=== PATIENT | male | born 1985 | race African-American/Black ===

== ENCOUNTER 2016-05-29 07:38 | Emergency (ER) | payer OTHER, MEDICAID ==
[~2016-05-29] VITALS: Ht 177.8 cm; Wt 65.8 kg
[~2016-05-29 07:38] MED LIST: AMPICILLIN IV; DILAUDID1 MG/M1 PO; NEURONTIN300 MG PO; NORCO 10/325 MG1 TAB PO; SENNA CON/DOCUS1 TAB PO; SENNA-S 50 MG-81 TAB PO; SULBACTAM IV; THERAGRAN1 TA2 PO; TYLENOL325 M2 PO; VANCOMYCIN HYDRO1 GM IV
[2016-05-29 07:48] VITALS: BP 114/82
--- NOTE | 2016-05-29 07:52 | NUR ---
PT TO BED 4 AT THIS TIME.
--- NOTE | 2016-05-29 07:53 | NUR ---
31M BIB SELF C/O BODY ACHES X TODAY & RT LEG PAIN X 3 DAYS; SWELLING NOTED TO RT KNEE; PT DENIES TRAUMA OR INJURY TO RT LEG AT THIS TIME; PT C/O PRESSURE/STABBING PAIN TO RT LEG, NON-RADIATING, 7/10 PAIN; A&OX4, BL LUNG SOUNDS CLEAR, RR EVEN/UNLABORED; PT STATES HAS DRY COUGH W/ GREEN MUCOUS X 2 DAYS; DENIES N/V/D AT THIS TIME; PT PRESENTS TO ED W/ CARRILLO; PT W/C BOUND, STATES PARALYZED FROM THE WAIST DOWN D/T FALL IN 2006; SKIN IS WARM/DRY/INTACT AT THIS TIME; PT PLACED IN GOWN, ASSISTED TO BED W/ HOB ELEVATED AND IN LOWEST POSITION; ER MD MADE AWARE OF STATUS. WILL CONTINUE TO MONITOR.
--- NOTE | 2016-05-29 08:05 | NUR ---
WARM BLANKET PROVIDED TO PT FOR COMFORT.
[2016-05-29] MEDS ORDERED: ACETAMINOPHEN 325 MG TAB PO ONE (08:10)
[2016-05-29 09:05] VITALS: BP 114/82
--- NOTE | 2016-05-29 09:05 | NUR ---
APatient does not wish to proceed with medical care recommended by . Patient given information related to possible complications, up to and including , which could occur as a result of leaving hospital at this time. Patient verbalizes understanding of risks involved leaving against medical advice. Patient has signed AMA form.
== END 2016-05-29 09:05 | disposition left against medical advice (07) ==
LOC: MED 07:38
DX: B34.9 Viral infection, unspecified (principal); R60.9 Edema, unspecified; G82.20 Paraplegia, unspecified; Z88.1 Allergy status to other antibiotic agents; Z88.5 Allergy status to narcotic agent

== ENCOUNTER 2016-08-24 21:09 | Inpatient (IN) | payer MEDICARE, MEDICAID ==
[~2016-08-24] VITALS: Ht 177.8 cm; Wt 61.7 kg
[2016-08-24 21:31] VITALS: BP 120/66
--- NOTE | 2016-08-24 22:48 | NUR ---
PT TAKEN TO BED 5
--- NOTE | 2016-08-24 23:00 | NUR ---
Note undone in EDM - 08/24/16 at 2309 by MEDSP 31Y/M PATIENT PRESENTS TO ED WITH C/O DIARHEA X 2 DAYS. PT. STATES HAVING ABDOMINAL PAIN WITH N/V/D X 2 DAYS, HOME HEALTH VISITED YESTERDAY, DRAWN BLOOD. PT. STATES HAVING SOME INFECTION. HX. PAEAPLEGIA. AAOX4, AMBULATORY VIA W/C. RESPIRATIONS ROOM AIR, EVEN AND UNLABORED. ON F/C, URINE DRAINED WELL. VSS, NO S/SX OF DISTRESS AT THIS TIME. ER MADE AWARE OF PT. STATUS.
--- NOTE | 2016-08-24 23:00 | NUR ---
31Y/M PATIENT PRESENTS TO ED WITH C/O DIARHEA X 2 DAYS. PT. STATES HAVING ABDOMINAL PAIN WITH N/V/D X 2 DAYS, HOME HEALTH VISITED YESTERDAY, DRAWN BLOOD. PT. STATES HAVING SOME INFECTION. HX. PAEAPLEGIA. AAOX4, AMBULATORY VIA W/C. RESPIRATIONS ROOM AIR, EVEN AND UNLABORED. ON SUPRA PUBIC CATHETER, URINE DRAINED WELL. VSS, NO S/SX OF DISTRESS AT THIS TIME. ER MD MADE AWARE OF PT. STATUS.
--- NOTE | 2016-08-25 00:08 | NUR ---
Dr. Phillips evaluating patient at bedside.
[2016-08-25] MEDS ORDERED: diphenhydrAMINE 50 MG/ML VIAL IVP ONE (00:20)
[2016-08-25] MEDS ORDERED: NACL 0.9% 1,000 ML IV ONE (00:20)
[2016-08-25] MEDS ORDERED: fentaNYL 0.05 MG/ML VIAL IVP ONE (00:20)
--- NOTE | 2016-08-25 00:46 | NUR ---
X-Ray at bedside.
[2016-08-25] MEDS ORDERED: CLINDAMYCIN 900 MG in DEXTROSE 5% 100 ML IV ONE (02:25)
[2016-08-25] MEDS ORDERED: CLINDAMYCIN 900 MG/6 ML VIAL IV ONE (02:34)
--- NOTE | 2016-08-25 03:30 | NUR ---
Patient appears to be resting comfortably in bed. Vital Signs within normal limits. Respirations even and unlabored.
[2016-08-25] MEDS: NACL 0.9% 1,000 ML IV SCH ×2 (03:56→21:23)
[2016-08-25] MEDS ORDERED: HYDROmorphone 1 MG/ML AMP IVP PRN ×2 (04:00→08:05)
[2016-08-25] MEDS ORDERED: ACETAMINOPHEN 325 MG TAB PO PRN (04:00)
[2016-08-25] MEDS ORDERED: IBUPROFEN 800 MG TAB PO PRN (04:00)
[2016-08-25] MEDS ORDERED: POTASSIUM CHLORIDE 10 MEQ TABER PO ONE (04:05)
--- NOTE | 2016-08-25 05:00 | NUR ---
Patient will be admitted to care of . Admited to TELEMETRY. Will go to [id number]. Belongings list completed. Report to LAILA LANE.
--- NOTE | 2016-08-25 05:06 | NUR ---
RECEIVED FROM ER PER GARRY AWAKE AND ALERT. NO SOB. PT. ABLE TO VERBALIZE NEEDS WELL. PARAPLEGIC HX. WITH SKIN IMPAIREMENTS(SEE PICTURES) , SUPRAPUBIC CARRILLO CATHETER IN PLACE, ILEOSTOMY BAG IN PLACE AND PICC LINE TO RIGHT SUBCLAVIAN WITH 2 PORTS. AFEBRILE. ORIENTED TO ROOM AND CALL LIGHT USE FOR HELP AND IF IN PAIN. PT. CARE PLANS FOR THE DAY DISCUSSED WITH HIM.
[2016-08-25 05:18] VITALS: BP 150/69
[2016-08-25] MEDS: LORazepam 2 MG/ML VIAL IVP PRN ×3 (05:25→15:15)
[2016-08-25] MEDS ORDERED: AMPICILLIN/SULBACTAM 3 GM VIAL ONE (06:16)
[2016-08-25] MEDS: AMPICILLIN/SULBACTAM 3 GM in NACL 0.9% 100 ML IV SCH ×4 (06:16→23:11)
--- NOTE | 2016-08-25 06:48 | NUR ---
PT. MEDICATED WITH DILAUDID 1 MG. AND ATIVAN ORDERED PER IVP RT PT. REQUESTED FOR IT. STATED "I NEED BOTH RT I AM RESTLESS AND I FEEL JITTERY" CHARGE NURSE AWARE OF IT. SBP 150/69. GIVEN PER PICC LINE UPPER RIGHT CHEST.
--- NOTE | 2016-08-25 07:14 | NUR ---
ENDORSED TO THE NEXT RN FOR CONTINUITY OF CARE. CHARGE NURSE AWARE. PT. AWAKE BUT REFUSES TO TALK TO THE INCOMING NURSES.
--- NOTE | 2016-08-25 07:15 | NUR ---
NO NOTED ADVERSE REACTIONS TO UNASYN INFUSING.
--- NOTE | 2016-08-25 07:16 | NUR ---
RECEIVED REPORT FROM NIGHT RN AT PT BEDSIDE. PT RESTING IN BED. NO S/S OF ACUTE DISTRESS. C/O ABDOMINAL PAIN, PT MEDICATED PREVIOUSLY. AAOX4. IV SITE PATENT AND INTACT. ORIENTED PT TO CALL LIGHT AND ENVIRONMENT. BED IN LOWEST POSITION. SAFETY MEASURES ENSURED. SUPRAPUBIC CATH DRAINING TO GRAVITY. PT HAS ILEOSTOMY BAG, EMPTY AT THIS TIME. WOUND NOTED ABOVE SITE ON ABDOMEN, OPEN TO AIR. PATIENT IS PARAPLEGIC, AMBULATES WITH ASSISTANCE IN WHEELCHAIR.
[2016-08-25 08:00] VITALS: BP 100/59
[2016-08-25] MEDS ORDERED: HYDROcodone/APAP 7.5/325 MG 1 TAB PO PRN (08:05)
[2016-08-25] MEDS ORDERED: ONDANSETRON 4 MG/2 ML VIAL IVP PRN (08:15)
[2016-08-25] MEDS ORDERED: ZOLPIDEM 5 MG TAB PO PRN (08:15)
--- NOTE | 2016-08-25 08:47 | NUR ---
PATIENT REFUSED EKG AT THIS TIME. JAVIER ULLOA
[2016-08-25] MEDS ORDERED: DOCUSATE SODIUM 250 MG GELCAP PO SCH (09:00)
[2016-08-25] MEDS: PANTOPRAZOLE 40 MG INJ VIAL IVP SCH (09:52)
[2016-08-25] MEDS: DOCUSATE SODIUM 100 MG GELCAP PO SCH (09:53)
[2016-08-25] MEDS: GABAPENTIN 300 MG CAP PO SCH (09:53)
[2016-08-25] MEDS: BETAMETHASONE VALERATE 0.1% TP SCH ×2 (09:53→21:00)
[2016-08-25] MEDS: MULTIVITAMIN 1 TAB PO SCH (09:53)
[2016-08-25] MEDS: HYDROmorphone 1 MG/ML AMP IVP PRN ×4 (09:54→23:11)
--- NOTE | 2016-08-25 09:55 | NUR ---
PATIENT C/O PAIN AND FEELING ANXIOUS, HAVING ANXIETY. MEDICATED ORDERED. NO S/S OF ACUTE DISTRESS.
--- NOTE | 2016-08-25 11:35 | NUR ---
EKG DONE AT BEDSIDE. RESULT GIVEN TO DR. DÍAZ
[2016-08-25 12:00] VITALS: BP 122/79
[2016-08-25] MEDS ORDERED: NON ADHERENT DRESSING TP PRN (12:15)
[2016-08-25] MEDS ORDERED: COMPOSITE DRESSING TP PRN (12:15)
[2016-08-25] MEDS ORDERED: THERAHONEY GEL 42.5 GM TP PRN (12:15)
[2016-08-25] MEDS ORDERED: Z-GUARD PASTE TP PRN (12:15)
--- NOTE | 2016-08-25 12:23 | NUR ---
JAMES NOTE PER DAY CARE HOME PROVIDER WESLY, SEND REVIEWS TO [facility]. SENT INITIAL REVIEW TO [facility] FAX# [phone] ATTN: JAMES Huertas # [phone]
[2016-08-25] MEDS: NON ADHERENT DRESSING TP SCH (13:00)
[2016-08-25] MEDS: THERAHONEY GEL 42.5 GM TP SCH (13:00)
[2016-08-25] MEDS: COMPOSITE DRESSING TP SCH (13:00)
[2016-08-25] MEDS: Z-GUARD PASTE TP SCH (13:00)
--- NOTE | 2016-08-25 13:51 | NUR ---
PATIENT SLEEPING IN BED. NO S/S OF ACUTE DISTRESS NOTED.
[2016-08-25] MEDS ORDERED: LACTOBACILLUS RHAMNOSUS GG 1 EACH CAP PO SCH (14:00)
--- NOTE | 2016-08-25 14:12 | NUR ---
WOUND CARE EVALUATION NOTES: REASON FOR EVALUATION: STOMA SITE INFECTION, CELLULITIS COMPLETE SKIN ASSESSMENT DONE ON THIS 31 Y/O MALE PATIENT FROM HOME TO [facility], WITH INITIAL DIAGNOSIS OF UTI. PAST MEDICAL HISTORY INCLUDE PARAPLEGIA. ALL ABOVE INFORMATION WAS OBTAINED FROM THE ADMISSION H&P. LABS ARE WBC 7.1, H/H 8.8/28.9, GLUCOSE 94, ALBUMIN 3.0, PT/INR 11.1/1.2 AND PTT 28.1. CURRENT MEDS INCLUDE DILAUDID, MULTIVITAMINS/SCORBIC ACID, AMBIEN, NORCO, UNASYN AND ATIVAN. PATIENT IS SLEEPING AT THIS TIME, BUT AROUSABLE BY NAME. SKIN WARM TO TOUCH WNL, TOENAILS ARE THICKENED AND DISCOLORED, NO EDEMA, MULTIPLE SCARRING NOTED ON BILATERAL FEET AND EXTREMITIES, UNABLE TO PALPATE BILATERAL PEDAL PULSES, WITH HAIR GROWTH. MULTIPLE SURGICAL SCARRING NOTED ON THE BACK, SACRALCOCCYX AND BILATERAL BUTTOCKS. SUPRAPUBIC CATHETER NOTED TO YELLOW URINE IN MODERATE AMOUNT. RLQ ILEOSTOMY SITE NOTED TO SCANT AMOUNT OF BROWNISH STOOLS. NOTED PATIENT IS STILL PUTTING OUT STOOLS THROUGH HIS RECTUM, BROWNISH SOFT STOOLS IN MODERATE AMOUNT. NEEDS MAX ASSISTANCE IN TURNING. INITIAL PLAN OF CARE AND PRESSURE PREVENTIVE MEASURES DISCUSSED, UNABLE TO VERBALIZE UNDERSTANDING. PATIENT IS UNCOOPERATIVE AT THIS TIME AND WAS NOT ANSWERING ALL THE QUESTIONS ASKED. WILL REINFORCE TEACHING. INTEGUMENTARY: LEFT ISCHIUM - RESURFACING ST IV RIGHT MEDIAL HALLUX - PRESSURE VS STASIS ULCER - PENDING REQUEST FOR ARTERIAL AND VENOUS U/S OF BLE RIGHT 2ND DIGIT - BLACK LEFT HALLUX - BLACK LEFT 2ND DIGIT - BLACK LEFT 3RD DIGIT - BLACK PERIAREA TO SCROTAL AREA - RED AND MOIST RECOMMENDATIONS: -CLEANSE PERIAREA TO SCROTAL AREA WITH MILD SOAP AND WATER, PAT DRY, APPLY Z GUARD BIDWC AND PRN WITH SOILING. LEAVE OPEN TO AIR -LEFT ISCHIUM: CLEANSE WITH NS AND GAUZE, PAT DRY, APPLY THERAHONEY GEL AND COVER WITH COMPOSITE DRESSING Q DAY AND PRN WITH SOILING -RIGHT THIGH: CLEANSE WITH MILD SOAP AND WATER, PAT DRY, APPLY ANTIFUNGAL OINT BIDWC AND LEAVE OPEN TO AIR -TURN AND REPOSITION PATIENT Q2H -ASSESS AND MONITOR SKIN CONDITION DURING POSITION CHANGE, PLEASE PAY PARTICULAR ATTENTION TO SACRALCOCCYX, ELBOWS AND HEELS -OFFLOAD BILATERAL HEELS BY PLACING PILLOWS UNDER CALVES AT ALL TIMES, UNLESS OTHERWISE CONTRAINDICATED -KEEP SKIN CLEAN AND DRY AT ALL TIMES. -SURGICAL CONSULT FOR LEFT ISCHIUM IF OK WITH PMD -PODIATRY CONSULT IF OK WITH PMD -ARTERIAL AND VENOUS U/S OF BLE IF OK WITH PMD -PRESSURE REDISTRIBUTION SURFACE THERAPY -KEEP SKIN CLEAN AND DRY AT ALL TIMES. RECOMMENDATIONS DISCUSSED WITH PRIMARY RN AND RESIDENT PHYSICIANS, DR. JUNG AND DR DÍAZ WILL FOLLOW UP PATIENT Q 7 DAYS AND PRN. PLEASE CONTACT [facility] FOR ANY CONCERNS, QUESTIONS AND CHANGES IN SKIN CONDITION.
[2016-08-25] MEDS ORDERED: ALGINATE ROPE MC SCH (14:30)
[2016-08-25 16:00] VITALS: BP 122/77
--- NOTE | 2016-08-25 18:00 | NUR ---
PATIENT SEEN BY DR. JONES AT PT BEDSIDE. MD TO DEBRIDE AT BEDSIDE.
[2016-08-25] MEDS: diphenhydrAMINE 50 MG/ML VIAL IVP PRN (19:06)
--- NOTE | 2016-08-25 19:22 | NUR ---
SBAR REPORT GIVEN TO NIGHT RN ARIANA AT PT BEDSIDE. NO S/S OF ACUTE DISTRESS. MEDICATED FOR PAIN. ENDORSED PLAN OF CARE.
--- NOTE | 2016-08-25 19:30 | NUR ---
RECEIVED FROM AM RN IN BED TRYING TO SLEEP. MEDICATED WITH PAIN RELIEVER DURTING CHANGE OF SHIFT. NO COMPLAINTS AT THIS TIME. CARE PLANS DISCUSSED WITH HIM. CALL LIGHT WITH IN REACH. TELEMETRY MONITORING. SUPRAPUBIC F/C IN PLACE WITH YELLOW URINE, ILEOSTOMY BAG PRESENT AND CENTRAL LINE TO RIGHT UPPER CHEST. ISOLATION PRECAUTIONS OBSERVED RT HISTORY OF MRSA NARES /WOUND AND MDRO URINE. AFEBRILE. ABLE TO VERBALIZE NEEDS WELL. PARAPLEGIC AND AMBULATES AROUND WITH WHEELCHAIR.
[2016-08-25 20:13] VITALS: BP 116/73
--- NOTE | 2016-08-25 22:04 | NUR ---
SLEEPING AT THIS TIME. NO RESTLESSNESS NOTED. CALL LIGHT WITH IN REACH.
[2016-08-25 23:06] VITALS: BP 110/74
--- NOTE | 2016-08-25 23:23 | NUR ---
PT. AWAKE AT THIS TIME. TURNED Q 2H BY CNAS. PILLOW SUPPORT TO PRESSURE AREAS. REQUESTED FOR A PAIN RELIEVER AT THIS TIME. MEDICATED ORDERED.
[2016-08-26] MEDS: Z-GUARD PASTE TP SCH ×2 (01:00→12:04)
--- NOTE | 2016-08-26 02:00 | NUR ---
SLEEPING. NO RESTLESSNESS AT THIS TIME. ABLE TO VERBALIZE NEEDS WELL. USES CALL LIGHT FOR ANY HELP HE NEEDS. A/O X 4.
[2016-08-26] MEDS: HYDROmorphone 1 MG/ML AMP IVP PRN ×6 (03:24→23:43)
--- NOTE | 2016-08-26 04:29 | NUR ---
SLEPT WELL. TURNED Q 2H. ABLE TO USE CALL LIGHT FOR HELP. TELEMETRY MONITORING.
--- NOTE | 2016-08-26 04:52 | NUR ---
PT. AWAKE AT THIS TIME WATCHING TV. REQUESTING FOR ATIVAN IVP. INFORMED HIM THAT HE JUST GOT HIS DILAUDID IVP AND THAT HIS HEART RATE AT THIS TIME IS SINUS SHAMIKA 55. PROS AND CONS OF GIVING HIM ATIVAN IVP AT THIS TIME IS DANGEROUS. MADE CHARGE NURSE AWARE OF IT. SHOWED HIM MONITOR STRIP AT THIS TIME . SEEN BY PT.
[2016-08-26 05:18] VITALS: BP 136/80
[2016-08-26] MEDS: AMPICILLIN/SULBACTAM 3 GM in NACL 0.9% 100 ML IV SCH ×4 (05:51→23:49)
[2016-08-26] MEDS: LORazepam 2 MG/ML VIAL IVP PRN ×4 (05:53→20:34)
--- NOTE | 2016-08-26 06:26 | NUR ---
PT. BLOOD SPECIMEN TAKEN. PORTS FLUSHED WITH NS. PATENT . MEDICATED WITH ATIVAN IVP REQUESTED. PT. REQUESTED TO HAVE BENADRYL IVP TOO AFTER GIVING ATIVAN IVP . EXPLAINED I CAN NOT GIVE BOTH OF THEM ALL TOGETHER AT THIS TIME. WILL MONITOR IF HIS HEART RATE GOES DOWN. EXPLAINED WHY I NEED TO BE CAREFUL IN GIVING ATIVAN IVP AND BENADRYL IVP TOGETHER . PT. UPSET THAT I WON'T GIVE MEDICATIONS TOGETHER.
--- NOTE | 2016-08-26 06:54 | NUR ---
PATIENT WAS INITIALLY SCREENED INITIAL/MODERATE AND THEN PATIENT WITH WOUNDS AFTER INITIAL SCREEN WAS DONE. RESCREEN ADDENDUM: PATIENT HAS BEEN RESCREENED AND RE-CATEGORIZED INITIAL/HIGH RISK D/T PATIENT WITH WOUNDS. PATIENT WILL BE SEEN WITHIN 1-2 DAYS OF CHANGE IN MEDICAL STATUS. 08/26/16-08/27/16 YVES ABDULLAHI MS, RDN
--- NOTE | 2016-08-26 07:28 | NUR ---
ENDORSED TO THE NEXT RN FOR CONTINUITY OF CARE. PT. AWAKE AND ABLE TO VERBALIZE WELL. TELEMETRY MONITORING.
--- NOTE | 2016-08-26 07:29 | NUR ---
RECEIVED REPORT AT BEDSIDE. PT SLEEPING UNDER COVERS. NO S/S OF ACUTE DISTRESS. SUPRAPUBIC CATH DRAINING TO GRAVITY. DRAINAGE BAG FROM RIGHT ABDOMINAL HAS NO DRAIN. PATIENT IS PARAPLEGIC. NO S/S OF RESPIRATORY DISTRESS. AAOX4. CALL LIGHT WITHIN REACH.
[2016-08-26 08:00] VITALS: BP 123/83
[2016-08-26] MEDS: DOCUSATE SODIUM 100 MG GELCAP PO SCH (08:21)
[2016-08-26] MEDS: GABAPENTIN 300 MG CAP PO SCH (08:21)
[2016-08-26] MEDS: diphenhydrAMINE 50 MG/ML VIAL IVP PRN ×3 (08:21→23:43)
[2016-08-26] MEDS: MULTIVITAMIN 1 TAB PO SCH (08:22)
[2016-08-26] MEDS: PANTOPRAZOLE 40 MG INJ VIAL IVP SCH (08:22)
[2016-08-26] MEDS: BETAMETHASONE VALERATE 0.1% TP SCH ×2 (08:23→23:42)
[2016-08-26] MEDS: LACTOBACILLUS RHAMNOSUS GG 1 EACH CAP PO SCH (08:36)
[2016-08-26] MEDS: MAGNESIUM OXIDE 400 MG TAB PO SCH ×3 (09:00→23:41)
[2016-08-26] MEDS: POTASSIUM CHLORIDE 10 MEQ TABER PO SCH (09:00)
--- NOTE | 2016-08-26 09:00 | NUR ---
PATIENT SEEN BY DR. STRONG AT PT BEDSIDE.
[2016-08-26] MEDS ORDERED: MAGNESIUM OXIDE 400 MG TAB PO ONE (10:35)
[2016-08-26] MEDS ORDERED: POTASSIUM CHLORIDE 40 MEQ, LIDOCAINE 1% 25 MG in NACL 0.9% 250 ML IV SCH (11:30)
[2016-08-26] MEDS ORDERED: POTASSIUM CHLORIDE 10 MEQ TABER PO SCH (11:30)
[2016-08-26 12:00] VITALS: BP 127/77
--- NOTE | 2016-08-26 12:00 | NUR ---
PT IS SLEEPING. NO S/S OF ACUTE DISTRESS.
[2016-08-26] MEDS: NON ADHERENT DRESSING TP SCH (12:04)
[2016-08-26] MEDS: THERAHONEY GEL 42.5 GM TP SCH (12:04)
[2016-08-26] MEDS: COMPOSITE DRESSING TP SCH (12:04)
[2016-08-26] MEDS: ALGINATE ROPE MC SCH (12:04)
--- NOTE | 2016-08-26 12:21 | NUR ---
08/26/16 RD INITIAL ASSESSMENT COMPLETED PLEASE REFER TO NUTRITION ASSESSMENT UNDER CARE ACTIVITY FOR ESTIMATED NUTRITIONAL NEEDS. RD RECOMMENDATIONS: 1. CONTINUE NPO APPROPRIATE. 2. CONSIDER INITIATING NUTRITION IF/WHEN MEDICALLY APPROPRIATE. 3. RD WILL F/U 2-3 DAYS; HIGH RISK. YVES ABDULLAHI, MS, RDN
--- NOTE | 2016-08-26 12:50 | NUR ---
PT IS SLEEPING WITH TRY IS LATER
--- NOTE | 2016-08-26 14:59 | NUR ---
CRITICAL RESULT OF KUB NOTIFIED TO DR. MANZANO. DR LERNER NOTIFIED, WANTS DR. LAUREANO TO BE NOTIFIED WELL. PAGE SENT TO DR. LAUREANO.
[2016-08-26 16:00] VITALS: BP 129/72
--- NOTE | 2016-08-26 17:20 | NUR ---
CT ORAL CONTRAST GIVEN TO PATIENT FROM RD. RD TO DO CT SCAN IN THREE HOURS.
--- NOTE | 2016-08-26 17:46 | NUR ---
PATIENT SEEN BY DR. LERNER AT BEDSIDE. MD AWAITING CT SCAN RESULTS. NO NEW ORDERS.
--- NOTE | 2016-08-26 18:00 | NUR ---
PAGE SENT OUT TO DR. LAUREANO. STILL NO CALLBACK FROM PREVIOUS CALL. WILL CONTINUE TO ATTEMPT CONTACT.
--- NOTE | 2016-08-26 19:20 | NUR ---
ENDORSED TO RN ELIAS PAGES TO DR. LAUREANO.
--- NOTE | 2016-08-26 19:21 | NUR ---
SBAR REPORT GIVEN TO RN ELIAS AT PT BEDSIDE. PT RESTING IN BED. NO S/S OF ACUTE DISTRESS NOTED.
--- NOTE | 2016-08-26 19:45 | NUR ---
RECEIVED PT IN STABLE CONDITION FROM AM NURSE. AWAKE,ALERT AND ORIENTED X4. ON BEDREST . ON TELE MONITOR. NO ACUTE DISTRESS NOTED. WITH IVF INFUSING WELL ON THE RT SUBCLAVIAN CENTRAL LINE DOUBLE LUMEN. HAS RT LOWER ABDOMINAL ILEOSTOMY WITH DRESSING . ALSO HAS SUPRAPUBIC CATHETER. , LT BUTTOCKS WOUND, JAYNE FEET WITH BAND AIDS . NEED TURNING TO SIDES Q2HRS. BOTH BLE ELEVATED ON PILLOWS . PT MADE AWARE ABOUT NPO, AND THE NEED FOR CT ABDOMEN /PELVIS TONIGHT. VERBALIZED UNDERSTANDING. CALL LIGHT PLACED WITHIN EASY REACH. FREQUENT ROUNDS NEEDED. BED ON LOW POSITION. ON CONTACT ISOLATION . WILL CONTINUE TO MONITOR.
[2016-08-26 20:13] VITALS: BP 123/70
[2016-08-26] MEDS: NACL 0.9% 1,000 ML IV SCH (21:23)
--- NOTE | 2016-08-26 21:45 | NUR ---
PT WAS PICKED UP FOR CT ABDOMEN/PELVIS WITH ORAL CONTRAST.
--- NOTE | 2016-08-26 22:13 | NUR ---
BACK FROM CT SCAN . WILL FOLLOW UP RESULT.
[2016-08-26 23:38] VITALS: BP 135/76
--- NOTE | 2016-08-27 02:00 | NUR ---
HAS BEEN REPOSITIONED FOR COMFORT. NO DISTRESS NOTED.
[2016-08-27] MEDS: LORazepam 2 MG/ML VIAL IVP PRN ×2 (02:42→21:12)
[2016-08-27] MEDS: HYDROmorphone 1 MG/ML AMP IVP PRN ×5 (02:43→20:15)
--- NOTE | 2016-08-27 03:30 | NUR ---
SLEEPING AT THIS TIME. NO S/S OF ANY DISCOMFORT NOR PAIN NOTED.
[2016-08-27 04:00] VITALS: BP 137/89
[2016-08-27] MEDS: AMPICILLIN/SULBACTAM 3 GM in NACL 0.9% 100 ML IV SCH ×2 (05:58→12:14)
[2016-08-27] MEDS: diphenhydrAMINE 50 MG/ML VIAL IVP PRN ×2 (06:05→18:03)
[2016-08-27] MEDS: NACL 0.9% 1,000 ML IV SCH ×2 (06:14→21:23)
--- NOTE | 2016-08-27 07:22 | NUR ---
LAB CALLED FOR BUN 4.0 AND CREAT 0.2 .WILL ENDORSE TO AM NURSE.
--- NOTE | 2016-08-27 07:33 | NUR ---
ENDORSED PT IN STABLE CONDITION TO AM NURSE.
--- NOTE | 2016-08-27 07:35 | NUR ---
RECEIVED REPORT FROM LAILA GRIFFIN. PT IS SLEEPING IN BED BUT EASILY AWAKEN, A/OX4, RT UPPER CHEST PICC LINE X2 LUMEN, PATENT, INTACT, FLUSHING WELL, RT SIDE ILEOSTOMY, POUCH EMPTY AT THIS TIME, PT HAS A SUPRA PUBIC CATHETER, LEFT BUTTOCK ULCER, RT ABDOMINAL WOUND GARO, JAYNE TOE S/P DEBRIDEMENT 08/26/16, NO S/S OF RESPIRATORY DISTRESS OR DISCOMFORT NOTED, SAFETY/FALL PRECAUTIONS IN PLACE, DISCUSSED PLAN OF CARE WITH PT, PT VERBALIZED UNDERSTANDING, CALL LIGHT IS WITHIN REACH, WILL CONTINUE TO MONITOR.
[2016-08-27 08:00] VITALS: BP 115/70
[2016-08-27] MEDS: POTASSIUM CHLORIDE 10 MEQ TABER PO SCH (08:47)
[2016-08-27] MEDS: MULTIVITAMIN 1 TAB PO SCH (08:47)
[2016-08-27] MEDS: MAGNESIUM OXIDE 400 MG TAB PO SCH ×2 (08:47→20:15)
[2016-08-27] MEDS: LACTOBACILLUS RHAMNOSUS GG 1 EACH CAP PO SCH (08:47)
[2016-08-27] MEDS: GABAPENTIN 300 MG CAP PO SCH (08:49)
[2016-08-27] MEDS: PANTOPRAZOLE 40 MG INJ VIAL IVP SCH (08:49)
[2016-08-27] MEDS: DOCUSATE SODIUM 100 MG GELCAP PO SCH (08:49)
[2016-08-27] MEDS: BETAMETHASONE VALERATE 0.1% TP SCH ×2 (08:50→20:16)
[2016-08-27] MEDS ORDERED: MAG SULF 2000 MG/WATER PREMIX 50 ML IV SCH (09:20)
--- NOTE | 2016-08-27 09:30 | NUR ---
PT IS SLEEPING IN BED, NO S/S OF RESPIRATORY DISTRESS OR DISCOMFORT NOTED, CALL LIGHT WITHIN REACH WILL CONTINUE TO MONITOR.
--- NOTE | 2016-08-27 10:30 | NUR ---
PT COMPLAINED OF A 10/10 ABDOMINAL PAIN, I CHECKED THE PATIENT'S BLOOD PRESSURE 88/47, HR:83, I LET DR. JUNG KNOW HE SAID HE WOULD GO AHEAD AND ORDER A BOLUS FOR THE PT.
[2016-08-27] MEDS ORDERED: NACL 0.9% 1,000 ML IV SCH (10:45)
--- NOTE | 2016-08-27 11:00 | NUR ---
RECHECKED PATIENT'S BLOOD PRESSURE AND BP WAS 98/63, HR 90, WILL CONTINUE TO MONITOR PATIENT.
--- NOTE | 2016-08-27 11:20 | NUR ---
PT ASKED IF HE COULD HAVE ATIVAN OR DILAUDID, I EDUCATED THE PATIENT AND LET HIM KNOW I COULD NOT GIVE THOSE MEDICATIONS AT THIS TIME BECAUSE HIS BLOOD PRESSURE WAS LOW AND IT WAS NOT SAFE TO GIVE. WILL CONTINUE TO MONITOR PT.
[2016-08-27 12:00] VITALS: BP 101/62
--- NOTE | 2016-08-27 12:00 | NUR ---
PATIENT'S BP IS 101/62, HR 69, AT THIS TIME, DR. JUNG IS AT BEDSIDE, DOCTOR INFORMED PT HE WOULD BE ORDERING A COLONOSCOPY FOR TOMORROW AND WOULD HAVE HIM SIGN A CONSENT, PT ASKED DR. JUNG IF HE COULD HAVE SOMETHING TO EAT, PER DOCTOR CURTIS, HE WOULD HAVE SOMETHING TO EAT FOR LUNCH BUT NOT FOR DINNER.
[2016-08-27] MEDS: ALGINATE ROPE MC SCH (13:32)
[2016-08-27] MEDS: COMPOSITE DRESSING TP SCH (13:32)
[2016-08-27] MEDS: THERAHONEY GEL 42.5 GM TP SCH (13:33)
[2016-08-27] MEDS: NON ADHERENT DRESSING TP SCH (13:33)
[2016-08-27] MEDS: Z-GUARD PASTE TP SCH ×2 (13:34)
[2016-08-27] MEDS: metroNIDAZOLE 500 MG/NS PREMIX 100 ML IV SCH ×2 (13:58→20:14)
--- NOTE | 2016-08-27 14:00 | NUR ---
PT IS RESTING IN BED WATCHING TV AT THIS TIME, NO S/S OF RESPIRATORY DISTRESS OR DISCOMFORT NOTED, CALL LIGHT WITHIN REACH, WILL CONTINUE TO MONITOR.
[2016-08-27 16:00] VITALS: BP 114/71
--- NOTE | 2016-08-27 16:00 | NUR ---
PT IS SLEEPING IN BED, NO S/S OF RESPIRATORY DISTRESS OR DISCOMFORT NOTED, CALL LIGHT WITHIN REACH, WILL CONTINUE TO MONITOR.
--- NOTE | 2016-08-27 16:30 | NUR ---
PAGED DR. ALAS FOR COLONOSCOPY ORDERS.
[2016-08-27] MEDS ORDERED: BISACODYL 5 MG TABEC PO SCH ×2 (17:00→21:00)
[2016-08-27] MEDS ORDERED: MAGNESIUM CITRATE 300 ML BTL PO SCH ×2 (17:00→21:00)
--- NOTE | 2016-08-27 19:05 | NUR ---
PT ENDORSED TO LAILA CRAWFORD FOR CONTINUITY OF CARE, PT STABLE AT THIS TIME.
--- NOTE | 2016-08-27 19:06 | NUR ---
RECEIVED PT IN STABLE CONDITION FROM LAILA HENAO. NO SOB, NO SIGNS OF DISTRESS. PT IS AOX4, WHEELCHAIR BOUND. PT IS PARAPLEGIC WITH FLACCIDITY NOTED TO LOWER EXTREMITIES. BP LOW, PT ASYMPTOMATIC, OTHER VS WNL. PT WITH CENTRAL LINE TO RT SUBCLAVIAN DOUBLE LUMEN PATENT, ASYMPTOMATIC, INTACT, IVF RUNNING. PT C/O PAIN, WILL MEDICATE PER MD ORDER. PT ON CONTACT PRECAUTIONS. PT WITH SUPRAPUBIC CATHETER DRAINING TO GRAVITY, PT WITH ILEOSTOMY, NO DRAINAGE NOTED. PT WITH WOUND TO LT BUTTOCKS, AND WOUND TO RT ABDOMEN ABOVE ILEOSTOMY, DRESSINGS DRY AND INTACT. EDUCATED PT THAT HE IS NPO EXCEPT MEDS, PT REQUESTED FOOD. TOLD PT THAT HE HAS A COLONOSCOPY SCHEDULE FOR TOMORROW AM AND THAT IS WHY HE CANNOT EAT OR DRINK. PT VERBALIZED UNDERSTANDING. PLAN OF CARE DISCUSSED WITH PT. SAFETY MEASURES IN PLACE. CALL LIGHT WITHIN REACH. WILL CONTINUE TO MONITOR.
[2016-08-27 20:00] VITALS: BP 99/57
--- NOTE | 2016-08-27 20:16 | NUR ---
PT TOLERATED DUE MEDS WELL. MEDICATED PT FOR PAIN PER MD ORDER. VS STABLE ON ROOM AIR. NO SOB, NO SIGNS OF DISTRESS. IV SITE ASYMPTOMATIC, INTACT, PATENT, IVPB RUNNING. PLAN OF CARE DISCUSSED WITH PT. SAFETY MEASURES IN PLACE. CALL LIGHT WITHIN REACH. WILL CONTINUE TO MONITOR.
[2016-08-27] MEDS: GENTAMICIN 80 MG in DEXTROSE 5% 100 ML IV SCH (21:11)
[2016-08-27] MEDS ORDERED: GENTAMICIN 80 MG/2 ML VIAL ONE (21:12)
--- NOTE | 2016-08-27 21:12 | NUR ---
PT C/O ANXIETY, PROVIDED EMOTIONAL SUPPORT, PT REQUESTED ATIVAN. VS STABLE ON ROOM AIR. MEDICATED PT PER MD ORDER, PT TOLERATED WELL. IV SITE ASYMPTOMATIC, INTACT, PATENT, IVF RUNNING. PLAN OF CARE DISCUSSED WITH PT. SAFETY MEASURES IN PLACE. CALL LIGHT WITHIN REACH. WILL CONTINUE TO MONITOR.
[2016-08-28] VITALS: BP 96/51
--- NOTE | 2016-08-28 00:24 | NUR ---
BP LOW, OTHER VS WNL ON ROOM AIR. PT C/O PAIN, REQUESTED DILAUDID. EDUCATED PT THAT HIS BP IS LOW AND IT MAY DROP WITH DILAUDID, RAISED PTS LEGS IN BED, ADVISED PT TO WAIT 30 MINS AND SEE IF BP GOES UP BEFORE ADMINISTERING BP MEDS. PT BECAME AGITATED, BUT VERBALIZED UNDERSTANDING. IV SITE ASYMPTOMATIC, INTACT, PATENT, IVF RUNNING. PLAN OF CARE DISCUSSED WITH PT. SAFETY MEASURES IN PLACE. CALL LIGHT WITHIN REACH. WILL CONTINUE TO MONITOR.
[2016-08-28] MEDS: Z-GUARD PASTE TP SCH ×2 (00:33→13:21)
[2016-08-28] MEDS: HYDROmorphone 1 MG/ML AMP IVP PRN ×2 (01:04→04:47)
--- NOTE | 2016-08-28 01:04 | NUR ---
RECHECKED BP, 103/55, OTHER VS WNL. MEDICATED PT FOR PAIN PER MD ORDER. PT TOLERATED WELL. NO SOB, NO SIGNS OF DISTRESS. IV SITE ASYMPTOMATIC, INTACT, PATENT, IVF RUNNING. PLAN OF CARE DISCUSSED WITH PT. SAFETY MEASURES IN PLACE. CALL LIGHT WITHIN REACH. WILL CONTINUE TO MONITOR.
[2016-08-28] MEDS: diphenhydrAMINE 50 MG/ML VIAL IVP PRN ×4 (01:44→20:58)
--- NOTE | 2016-08-28 01:44 | NUR ---
PT C/O ITCHINESS. MEDICATE PT WITH BENADRYL PER MD ORDER. PT TOLERATED WELL. NO SOB, NO SIGNS OF DISTRESS. IV SITE ASYMPTOMATIC, INTACT, PATENT, IVF RUNNING. PLAN OF CARE DISCUSSED WITH PT. SAFETY MEASURES IN PLACE. CALL LIGHT WITHIN REACH. WILL CONTINUE TO MONITOR.
[2016-08-28] MEDS ORDERED: BISACODYL 5 MG TABEC PO SCH (02:00)
[2016-08-28] MEDS ORDERED: MAGNESIUM CITRATE 300 ML BTL PO SCH (02:00)
[2016-08-28] MEDS ORDERED: MAGNESIUM CITRATE 300 ML BTL ONE (02:17)
--- NOTE | 2016-08-28 02:51 | NUR ---
PT ASLEEP IN BED. NO SOB, NO SIGNS OF DISTRESS. IV SITE ASYMPTOMATIC, INTACT, PATENT, IVF RUNNING. SAFETY MEASURES IN PLACE. ALL LIGHT WITHIN REACH. WILL CONTINUE TO MONITOR.
--- NOTE | 2016-08-28 03:55 | NUR ---
VS STABLE ON ROOM AIR. PT C/O PAIN, REQUESTED DILAUDID. TOLD PT WILL MEDICATE PT WHEN DILAUDID IS DUE AFTER 0444. IV SITE ASYMPTOMATIC, INTACT, PATENT, IVF RUNNING. PLAN OF CARE DISCUSSED WITH PT. SAFETY MEASURES IN PLACE. CALL LIGHT WITHIN REACH. WILL CONTINUE TO MONITOR.
[2016-08-28 04:00] VITALS: BP 100/51
[2016-08-28] MEDS: GENTAMICIN 80 MG in DEXTROSE 5% 100 ML IV SCH ×3 (04:08→20:42)
[2016-08-28] MEDS: metroNIDAZOLE 500 MG/NS PREMIX 100 ML IV SCH ×3 (04:39→21:11)
--- NOTE | 2016-08-28 07:31 | NUR ---
ENDORSED PT IN STABLE CONDITION TO LAILA HOLDEN. ALL NEEDS HAVE BEEN MET AT THIS TIME.
--- NOTE | 2016-08-28 07:32 | NUR ---
PT AWAKE ALERT AND ORIENTED X4, NO SIGNS OF ACUTE DISTRESS, BREATHING EVEN AND UNLABORED BILATERALLY. ABDOMEN DISTENDED WITH TENDERNESS TO TOUCH COMPLAINT OF PAIN 9/10, BOWEL SOUNDS ACTIVE IN ALL FOUR QUADRANTS, BOWEL AND BLADDER INCONTINENCE WITH ILEOSTOMY AND SUPRAPUBIC CATHETER IN PLACE, PRESSURE ULCER ON LEFT BUTTOCK OPEN TO AIR, OLD WOUND ABOVE ILEOSTOMY ON RIGHT ABDOMEN OPEN TO AIR, WOUNDS ON BILATERAL TOES COVERED WITH BANDAGE, PARAPLEGIC AND CHAIRFAST, IV PATENT NO REDNESS OR TENDERNESS, BED IN LOW POSITION WITH BILATERAL HALF SIDE RAILS UP, CALL LIGHT WITHIN REACH.
[2016-08-28 08:00] VITALS: BP 96/54
[2016-08-28] MEDS ORDERED: SODIUM PHOSPHATE 118 ML ENEM RC SCH ×2 (08:00→08:05)
[2016-08-28] MEDS: DOCUSATE SODIUM 100 MG GELCAP PO SCH (08:27)
[2016-08-28] MEDS: PANTOPRAZOLE 40 MG INJ VIAL IVP SCH (08:28)
[2016-08-28] MEDS: LACTOBACILLUS RHAMNOSUS GG 1 EACH CAP PO SCH (08:28)
[2016-08-28] MEDS: MULTIVITAMIN 1 TAB PO SCH (08:28)
[2016-08-28] MEDS: GABAPENTIN 300 MG CAP PO SCH (08:28)
[2016-08-28] MEDS: MAGNESIUM OXIDE 400 MG TAB PO SCH ×2 (08:28→21:12)
[2016-08-28] MEDS: POTASSIUM CHLORIDE 10 MEQ TABER PO SCH (08:29)
[2016-08-28] MEDS: HYDROmorphone PFS 2 MG/ML SYR IVP PRN ×5 (08:30→23:26)
[2016-08-28] MEDS: BETAMETHASONE VALERATE 0.1% TP SCH ×2 (08:32→21:00)
--- NOTE | 2016-08-28 08:45 | NUR ---
GAVE ENEMA ORDERED, PATIENT ABLE TO HAVE BOWEL MOVEMENT. CLEANED AND COVERED LEFT BUTTOCK PRESSURE ULCER WITH MEPILEX, PROVIDED AM CARE AND REPOSITIONED PATIENT.
[2016-08-28] MEDS: LORazepam 2 MG/ML VIAL IVP PRN ×3 (09:17→21:32)
[2016-08-28] MEDS ORDERED: fentaNYL 0.05 MG/ML VIAL ONE (10:52)
[2016-08-28] MEDS ORDERED: MIDAZOLAM 2 MG/2 ML VIAL ONE (10:52)
--- NOTE | 2016-08-28 11:00 | NUR ---
PATIENT WENT OFF UNIT FOR COLONOSCOPY TO OR. AWAKE AND ALERT, NO SIGNS OF ACUTE DISTRESS. GAVE REPORT TO SHAYNA ULLOA FROM OR.
[2016-08-28] MEDS ORDERED: LIDOCAINE 2% 100 MG/5 ML UJET TP ONE (11:21)
--- NOTE | 2016-08-28 11:22 | NUR ---
SS NOTE: ATTEMPTED TO SPEAK WITH PT BEDSIDE BUT PT WAS ALREADY TAKEN TO A PROCEDURE
[2016-08-28] MEDS: MIDAZOLAM 2 MG/2 ML VIAL IV ONE ×2 (11:41→12:30)
[2016-08-28 12:00] VITALS: BP 93/63
--- NOTE | 2016-08-28 12:00 | NUR ---
PATIENT CAME BACK ON UNIT. ALERT AND RESPONSIVE, NO SIGNS OF ACUTE DISTRESS. RECEIVED REPORT FROM SHAYNA OR, S/P COLONOSCOPY. RESULTS UNREMARKABLE.
[2016-08-28] MEDS ORDERED: fentaNYL 0.1 MG/HR PATCH TD SCH (12:05)
--- NOTE | 2016-08-28 12:33 | NUR ---
CM NOTE CONCURRENT REVIEW SENT TO [employer] FAX# [phone] PH# JAMES Huertas [phone]
[2016-08-28] MEDS: COMPOSITE DRESSING TP SCH (13:20)
[2016-08-28] MEDS: NON ADHERENT DRESSING TP SCH (13:21)
[2016-08-28] MEDS: THERAHONEY GEL 42.5 GM TP SCH (13:21)
[2016-08-28] MEDS: ALGINATE ROPE MC SCH (13:22)
[2016-08-28] MEDS: NACL 0.9% 1,000 ML IV SCH (13:41)
[2016-08-28] MEDS ORDERED: fentaNYL 0.05 MG/ML VIAL IVP ONE (14:05)
[2016-08-28 15:00] VITALS: BP 97/56
--- NOTE | 2016-08-28 17:10 | NUR ---
RECEIVED NEW ORDER FROM MD TO TRANSFER FROM MED SURG TO TELE, WILL CARRY OUT.
--- NOTE | 2016-08-28 18:47 | NUR ---
PATIENT AWAKE AND ALERT, NO SIGNS OF ACUTE DISTRESS. WILL ENDORSE TO MORTGAGE CLERK NURSE FOR CONTINUITY OF CARE.
--- NOTE | 2016-08-28 19:15 | NUR ---
RECEIVED REPORT FROM DAY SHIFT NURSE. PT IS AAOX4, DENIES PAIN AT THIS TIME. ON ROOM AIR, NO S/S OF RESPIRATORY DISTRESS/DISCOMFORT NOTED. HAS CENTRAL LINE, DOUBLE LUMEN, PATENT, INTACT AND INFUSING WELL. ILEOSTOMY BAG NOTED WITH 0 ML OUTPUT. SUPRAPUBIC CATHETER NOTED, INDWELING WELL. PLAN OF CARE DISCUSSED, VERBALIZED UNDERSTANDING. SAFETY MEASURES CHECKED, CALL LIGHT WITHIN REACH. WILL CONTINUE TO MONITOR.
--- NOTE | 2016-08-28 21:33 | NUR ---
DUE MEDS GIVEN. PROVIDED HEALTH TEACHING, VERBALIZED UNDERSTANDING. PT TOLERATED WELL.
--- NOTE | 2016-08-28 21:45 | NUR ---
ALL NEEDS ATTENDED, REQUESTED A SANDWICH AND WAS GIVEN. CALL LIGHT WITH REACH.
[2016-08-28 23:22] VITALS: BP 110/87
[2016-08-29] VITALS: BP 107/84
--- NOTE | 2016-08-29 | NUR ---
V/S CHECKED, HAS COMPLAINED OF PAIN MEDICATED WITH PAIN MED PER MD ORDERED. CALL LIGHT WITH REACH.
--- NOTE | 2016-08-29 01:48 | NUR ---
EYES CLOSED, RESTING QUIETLY, BREATHING EVEN AND UNLABORED. CALL LIGHT WITH REACH.
[2016-08-29] MEDS: HYDROmorphone PFS 2 MG/ML SYR IVP PRN ×7 (02:17→20:30)
--- NOTE | 2016-08-29 02:40 | NUR ---
LOOSE WATERY BOWEL MOVEMENT LEAKED ON PT'S BED AND ON THE FLOOR. LINEN, BED SHEET AND PT'S GOWN CHANGED. NO SOB NOTED TO THE PT. CALL LIGHT WITHIN REACH.
[2016-08-29] MEDS: Z-GUARD PASTE TP SCH ×2 (03:13→13:21)
--- NOTE | 2016-08-29 03:13 | NUR ---
PT COMPLAINED OF PAIN, V/S CHECKED . ADMINISTERED PAIN MED PER MD ORDERED. PROVIDED HEALTH TEACHING, VERBALIZED UNDERSTANDING. CALL LIGHT WITHIN REACH.
[2016-08-29] MEDS: diphenhydrAMINE 50 MG/ML VIAL IVP PRN ×3 (03:14→20:30)
--- NOTE | 2016-08-29 04:28 | NUR ---
PT SLEEPING. NOT IN DISTRESS. NO SOB NOTED. CALL LIGHT WITHIN REACH.
[2016-08-29] MEDS: GENTAMICIN 80 MG in DEXTROSE 5% 100 ML IV SCH (04:48)
[2016-08-29] MEDS: metroNIDAZOLE 500 MG/NS PREMIX 100 ML IV SCH ×3 (05:22→20:27)
[2016-08-29] MEDS: LORazepam 2 MG/ML VIAL IVP PRN ×2 (05:50→18:14)
--- NOTE | 2016-08-29 06:17 | NUR ---
PT COMPLAINED OF PAIN, V/S CHECKED. PROVIDED HEALTH TEACHING REGARDING S/E OF MEDS, VERBALIZED UNDERSTANDING. ADMINISTERED PAIN MED PER MD ORDERED.
--- NOTE | 2016-08-29 07:21 | NUR ---
ENDORSED PT TO DAY SHIFT NURSE FOR CONTINUITY OF CARE. PT IN STABLE CONDITION.
--- NOTE | 2016-08-29 07:22 | NUR ---
RECEIVED PT ASLEEP BUT EASILY AROUSABLE, AAOX4, WITH NO S/S OF DISTRESS NOTED. WITH CENTRAL LINE ACCESS AT RIGHT SUBCLAVIAN VEIN X 2 LUMEN PATENT AND INTACT. WITH ILEOSTOMY WITH MINIMAL OUTPUT, SUPRAPUBIC CATHETER CONNECTED TO URINE BAG DRAINING YELLOW URINE. WITH LEFT BUTTOCK PRESSURE ULCER WITH DRY AND INTACT DRESSING. DISCUSSED PLAN OF CARE, OPT VERBALIZED UNDERSTANDING. SAFETY PRECAUTIONS ENFORCED. CALL LIGHT WITHIN REACH, WILL CONTINUE TO MONITOR.
[2016-08-29 08:00] VITALS: BP 100/57
[2016-08-29] MEDS ORDERED: GENTAMICIN PER PHARMACY MC PRN (09:15)
--- NOTE | 2016-08-29 09:20 | NUR ---
CM NOTE CONCURRENT REVIEW SENT TO [employer] FAX# [phone] PH# JAMES Huertas [phone]
[2016-08-29] MEDS: BETAMETHASONE VALERATE 0.1% TP SCH ×2 (09:23→20:29)
[2016-08-29] MEDS: PANTOPRAZOLE 40 MG INJ VIAL IVP SCH (09:23)
[2016-08-29] MEDS: LACTOBACILLUS RHAMNOSUS GG 1 EACH CAP PO SCH (09:24)
[2016-08-29] MEDS: POTASSIUM CHLORIDE 10 MEQ TABER PO SCH (09:24)
[2016-08-29] MEDS: GABAPENTIN 300 MG CAP PO SCH (09:24)
[2016-08-29] MEDS: MULTIVITAMIN 1 TAB PO SCH (09:24)
[2016-08-29] MEDS: MAGNESIUM OXIDE 400 MG TAB PO SCH ×2 (09:24→20:27)
[2016-08-29] MEDS: DOCUSATE SODIUM 100 MG GELCAP PO SCH (09:25)
--- NOTE | 2016-08-29 09:35 | NUR ---
DUE MEDS GIVEN, PT TIFFANI;ERATED WELL. BP AT 100/60. CALL LIGHT WITHIN REACH, WILL CONTINUE TO MONITOR
--- NOTE | 2016-08-29 11:45 | NUR ---
PT ASLEEP, NO S/S OF RESPIRATORY DISTRESS. WILL CONTINUE TO MONITOR.
[2016-08-29 11:53] VITALS: BP 107/64
--- NOTE | 2016-08-29 12:45 | NUR ---
PT HAS WATERY STOOL X1. HAS [facility] APPETITE FOR LUNCH. WILL CONTINUE TO MONITOR
[2016-08-29] MEDS: THERAHONEY GEL 42.5 GM TP SCH (13:20)
[2016-08-29] MEDS: COMPOSITE DRESSING TP SCH (13:20)
[2016-08-29] MEDS: ALGINATE ROPE MC SCH (13:20)
[2016-08-29] MEDS: NON ADHERENT DRESSING TP SCH (13:20)
--- NOTE | 2016-08-29 13:56 | NUR ---
SS NOTE: SENT SHORT TERM SNF PLACEMENT INQUIRIES TO: - [facility] - [facility] [place]
--- NOTE | 2016-08-29 13:58 | NUR ---
08/29/16 RD FOLLOW UP COMPLETED PLEASE REFER TO NUTRITION PROGRESS NOTE UNDER CARE ACTIVITY FOR ESTIMATED NUTRITION NEEDS. RD RECOMMENDATIONS: 1. CONTINUE ON REGULAR DIET TOLERATED --NOTE PT MEETING 97% OF PT ESTIMATED CALORIC NEEDS AND 100% ESTIMATED PROTEIN NEEDS. 2. RD WILL F/U 2-3 DAYS; LOW RISK. JODI WALTER[address] RD
--- NOTE | 2016-08-29 14:25 | NUR ---
SS NOTE: [facility] GHISLAINE [facility], THEY RECEIVED PT'S PAPERWORK AND WILL HAVE THEIR DON REVIEW THE INFORMATION PER OSMAN FROM [facility], PT HAS BEEN TO THEIR FACILITY BEFORE AND THEY ARE UNABLE TO ACCEPT PT PER JULY FROM [facility], NO ISO BEDS AVAILABLE
[2016-08-29] MEDS: GENTAMICIN 120 MG in DEXTROSE 5% 100 ML IV SCH ×2 (14:28→21:33)
--- NOTE | 2016-08-29 14:35 | NUR ---
PT ASLEEP AT THIS TIME. ALL NEEDS ATTENDED. WILL CONTINUE TO MONITOR
[2016-08-29 16:00] VITALS: BP 96/57
--- NOTE | 2016-08-29 16:14 | NUR ---
PT ASLEEP BUT EASILY AROUSABLE, VITALS STABLE. ASSISTED ON REPOSITIONING. ALL NEEDS MET AT THIS TIME. WILL CONTINUE TO MONITOR
[2016-08-29 17:37] VITALS: BP 117/70
[2016-08-29 18:15] VITALS: BP 101/59
--- NOTE | 2016-08-29 18:18 | NUR ---
PT AWAKE WATCHING TV, NO S/S OF DISTRESS. WILL CONTINUE TO MONITOR
--- NOTE | 2016-08-29 19:21 | NUR ---
ENDORSED PT TO NIGHT NURSE IN STABLE CONDITION FOR CONTINUITY OF CARE
--- NOTE | 2016-08-29 19:30 | NUR ---
ASSUMED CARE OF PATIENT, EATING DINNER. IVF INFUSING WELL. ASKING FOR PAIN MEDS. CALL LIGHT WITHIN REACH.
--- NOTE | 2016-08-29 20:00 | NUR ---
VITAL SIGNS STABLE. SUPRAPUBIC CATHETER DRAINING WELL. ILEOSTOMY TUBE WITH NO OUTPUT. PLAN OF CARE DISCUSSED WITH PATIENT, VERBALIZED UNDERSTANDING WELL. CALL LIGHT WITHIN REACH.
--- NOTE | 2016-08-29 20:30 | NUR ---
PAIN MED AND BENADRYL GIVEN REQUESTED. DUE MEDS GIVEN. CALL LIGHT WITHIN REACH.
[2016-08-29] MEDS: NACL 0.9% 1,000 ML IV SCH (21:33)
[2016-08-30 00:14] VITALS: BP 110/67
--- NOTE | 2016-08-30 00:16 | NUR ---
SLEEPING WELL. NO COMPLAINS. CALL LIGHT WITHIN REACH. VITAL SIGNS STABLE.
[2016-08-30] MEDS: HYDROmorphone PFS 2 MG/ML SYR IVP PRN ×2 (00:46→04:55)
--- NOTE | 2016-08-30 00:57 | NUR ---
REFUSING REPOSITIONING.
[2016-08-30] MEDS: Z-GUARD PASTE TP SCH ×2 (00:58→13:34)
--- NOTE | 2016-08-30 01:01 | NUR ---
PATIENT REFUSE REPOSITIONING. Addendum: 08/30/16 at 0102 by Khloe Shaw RN Amended: Links added.
[2016-08-30] MEDS: LORazepam 2 MG/ML VIAL IVP PRN (01:05)
[2016-08-30] MEDS: metroNIDAZOLE 500 MG/NS PREMIX 100 ML IV SCH ×3 (04:41→21:28)
[2016-08-30] MEDS: diphenhydrAMINE 50 MG/ML VIAL IVP PRN ×4 (04:55→23:34)
[2016-08-30] MEDS: GENTAMICIN 120 MG in DEXTROSE 5% 100 ML IV SCH ×3 (05:52→22:31)
--- NOTE | 2016-08-30 07:17 | NUR ---
ENDORSED CARE AT BEDSIDE WITH JOHN RN, PATIENT IN STABLE CONDITION.
--- NOTE | 2016-08-30 07:20 | NUR ---
RECEIVED REPORT FROM LAILA MCFARLANE. PT IS RESTING IN BED BUT EASILY AWAKEN, A/OX4, RT UPPER CHEST PICC LINE X2 LUMEN, PATENT, INTACT, INFUSING WELL, RT SIDE ILEOSTOMY, POUCH EMPTY AT THIS TIME, PT HAS A SUPRA PUBIC CARRILLO CATHETER, LEFT BUTTOCK ULCER, RT ABDOMINAL WOUND GARO, JAYNE TOE S/P DEBRIDEMENT 08/26/16, NO S/S OF RESPIRATORY DISTRESS OR DISCOMFORT NOTED, SAFETY/FALL PRECAUTIONS IN PLACE, DISCUSSED PLAN OF CARE WITH PT, PT VERBALIZED UNDERSTANDING, CALL LIGHT IS WITHIN REACH, WILL CONTINUE TO MONITOR.
[2016-08-30 08:00] VITALS: BP 113/69
--- NOTE | 2016-08-30 08:45 | NUR ---
DR. MARIE AT PT BEDSIDE TALKING TO PT.
[2016-08-30] MEDS ORDERED: METOCLOPRAMIDE 10 MG/2 ML INJ VIAL IVP PRN (08:50)
[2016-08-30] MEDS: LACTOBACILLUS RHAMNOSUS GG 1 EACH CAP PO SCH (09:05)
[2016-08-30] MEDS: PANTOPRAZOLE 40 MG INJ VIAL IVP SCH (09:05)
[2016-08-30] MEDS: POTASSIUM CHLORIDE 10 MEQ TABER PO SCH (09:05)
[2016-08-30] MEDS: GABAPENTIN 300 MG CAP PO SCH (09:06)
[2016-08-30] MEDS: DOCUSATE SODIUM 100 MG GELCAP PO SCH (09:06)
[2016-08-30] MEDS: HYDROmorphone 1 MG/ML AMP IVP PRN ×5 (09:06→23:34)
[2016-08-30] MEDS: MAGNESIUM OXIDE 400 MG TAB PO SCH ×2 (09:07→21:28)
[2016-08-30] MEDS: MULTIVITAMIN 1 TAB PO SCH (09:07)
[2016-08-30] MEDS: BETAMETHASONE VALERATE 0.1% TP SCH ×2 (09:07→21:29)
[2016-08-30] MEDS: LACTULOSE 20 GM/30 ML UDC PO SCH ×2 (09:25→21:28)
--- NOTE | 2016-08-30 10:54 | NUR ---
PT IS OUT OF THE ROOM, HE HAD WHEELED HIMSELF OUT OF HIS ROOM, PT STATED, HE WANTED TO GET SOMETHING TO EAT, I REMINDED PT HE WAS NOT ABLE TO EAT YET BECAUSE DR. MARIE HAD PUT AN ORDER FOR NPO SINCE HE WAS HAVING A CT-SCAN OF THE ABDOMEN DONE, FOOD WAS REMOVED FROM BEDSIDE.
--- NOTE | 2016-08-30 11:34 | NUR ---
SS NOTE: I SPOKE WITH PT REGARDING PT'S DISCHARGE PLAN. PT STATED THAT HE DOES NOT FEEL THAT HOME HEALTH IS FEASIBLE AT HIS HOME AT THIS TIME. I INFORMED HIM REGARDING THE IMPORTANCE OF A SAFE D/C PLAN AND ALSO INFORMED HIM THAT FINDING A SNF FOR SHORT TERM IV ABX AND WOUND CARE HAS BEEN INITIATED. PT REPORTED THAT HE WOULD PREFER TO GO TO [facility]. I DISCUSSED WITH PT THAT IT WOULD BE UP TO HIS ATTENDING PHYSICIAN AND INSURANCE AUTHORIZATION BUT SNF WOULD BE AN IMPORTANT BACK UP OPTION. HE ALSO REPORTED THAT HE WILL CONTACT MEDICARE TO CHECK HIS HOSPITAL DAYS. I INFORMED PT THAT ACCORDING TO OUR EMERGENCY COMMUNICATIONS DISPATCHER, HE DOES NOT HAVE ANY MORE MEDICARE HOSPITAL DAYS, PT VERBALIZED UNDERSTANDING. I ALSO INFORMED PT THAT WE WILL CONTINUE TO SEE IF THERE WILL BE AN ACCEPTING SNF FOR PT.
--- NOTE | 2016-08-30 12:15 | NUR ---
PT ASKED IF HE COULD HAVE SOMETHING TO EAT YET, I LET HIM KNOW THE DOCTORS ORDER FOR NPO WAS STILL IN PLACE SINCE HE WAS HAVING A CT-SCAN DONE.
[2016-08-30] MEDS: ALGINATE ROPE MC SCH (13:31)
[2016-08-30] MEDS: COMPOSITE DRESSING TP SCH (13:31)
--- NOTE | 2016-08-30 13:31 | NUR ---
CM NOTE CONCURRENT REVIEW SENT TO [facility] FAX# [phone] PH# JAMES Huertas [phone]
[2016-08-30] MEDS: NON ADHERENT DRESSING TP SCH (13:32)
[2016-08-30] MEDS: THERAHONEY GEL 42.5 GM TP SCH (13:33)
--- NOTE | 2016-08-30 14:00 | NUR ---
PT IS RESTING IN BED TALKING ON HIS PHONE, CALL LIGHT WITHIN REACH, WILL CONTINUE TO MONITOR.
--- NOTE | 2016-08-30 14:30 | NUR ---
PT IS SLEEPING IN BED AT THIS TIME.
--- NOTE | 2016-08-30 14:50 | NUR ---
SS NOTE: KIRAN SCANLON FROM [facility], NO ISO BEDS AVAILABLE SENT ADDITIONAL SNF INQUIRIES TO: - EMILIANO GAMEZ - [facility] [place] [facility] - [facility] [place] - [facility] - [facility]
[2016-08-30 16:00] VITALS: BP 99/66
--- NOTE | 2016-08-30 19:30 | NUR ---
ENDORSED PT TO LAILA GRIFFIN. FOR CONTINUITY OF CARE. PT STABLE AT THIS TIME.
--- NOTE | 2016-08-30 19:45 | NUR ---
RECEIVED PT IN STABLE CONDITION FROM AM NURSE. AAO X4. WITH NO ACUTE DISTRESS NOTED. HAS IVF INFUSING WELL ON THE RT SUBCLAVIAN CENTRAL LINE. BEDREST. WITH SACRAL PRESSURE ULCER , LT HIP WOUND. JAYNE FEET TOES ALTERED SKIN. HAS RT ILEOSTOMY CONNECTED TO BAG, WITH SUPRAPUBIC CATH ,WITH CLEAR URINE. PLAN OF CARE DISCUSSED . VERBALIZED UNDERSTANDING. CALL LIGHT PLACED WITHIN EASY REACH. WILL CONTINUE TO MONITOR.
[2016-08-30 20:30] VITALS: BP 123/78
[2016-08-30] MEDS: NACL 0.9% 1,000 ML IV SCH (21:23)
--- NOTE | 2016-08-30 22:00 | NUR ---
SLEEPING AT THIS TIME. NO S/S OF DISCOMFORT NOTED.
[2016-08-30 23:32] VITALS: BP 104/60
[2016-08-31] MEDS: LORazepam 2 MG/ML VIAL IVP PRN ×2 (00:39→15:42)
[2016-08-31] MEDS: Z-GUARD PASTE TP SCH ×2 (01:00→13:00)
--- NOTE | 2016-08-31 02:00 | NUR ---
ASLEEP. NO S/S OF ANY DISTRESS NOTED.
[2016-08-31] MEDS: metroNIDAZOLE 500 MG/NS PREMIX 100 ML IV SCH ×3 (05:05→21:40)
[2016-08-31 05:41] VITALS: BP 100/68
[2016-08-31] MEDS: diphenhydrAMINE 50 MG/ML VIAL IVP PRN ×3 (05:43→18:08)
[2016-08-31] MEDS: HYDROmorphone 1 MG/ML AMP IVP PRN ×6 (05:44→21:40)
--- NOTE | 2016-08-31 06:00 | NUR ---
BLOOD WAS DRAWN ON THE CENTRAL LINE. WILL FOLLOW UP RESULT.
[2016-08-31] MEDS: GENTAMICIN 120 MG in DEXTROSE 5% 100 ML IV SCH ×3 (06:10→22:00)
--- NOTE | 2016-08-31 07:27 | NUR ---
ENDORSED PT IN STABLE CONDITION TO AM NURSE.
--- NOTE | 2016-08-31 07:30 | NUR ---
RECEIVED REPORT FROM NIGHT NURSE. PT AOX4, ABLE TO VERBALIZE NEEDS. PT C/O PAIN, WILL ASSESS PT AND ADMINISTER PAIN MEDICATION ORDERED. NO CP, SOB OR S/S OF ACUTE DISTRESS. SUPRAPUBIC CATH IN PLACE, DRAINING CLEAR YELLOW URINE. ILEOSTOMY IN PLACE, PT DENIES HAVING BM. WOUND DRESSINGS CLEAN, DRY AND INTACT. RIGHT LOWER LEG SCAR NOTED. BLE TOES BANDAGES IN PLACE. SCDS IN PLACE. PT EDUCATED AND REMINDED TO USE INCENTIVE SPIROMETER. REPOSITIONED AND OFFLOAD PRESSURE SITES. RIGHT SUBCLAVIAN ASYMPTOMATIC, PATENT AND INTACT. IVF INFUSING WELL. DISCUSSED AND REVIEWED PLAN OF CARE WITH PT. PT VERBALIZES UNDERSTANDING. SAFETY MEASURES ENSURED. CALL LIGHT WITHIN REACH. WILL CONTINUE TO MONITOR.
[2016-08-31 08:00] VITALS: BP 114/70
[2016-08-31] MEDS: LACTULOSE 20 GM/30 ML UDC PO SCH ×2 (08:44→21:00)
[2016-08-31] MEDS: LACTOBACILLUS RHAMNOSUS GG 1 EACH CAP PO SCH (08:44)
[2016-08-31] MEDS: DOCUSATE SODIUM 100 MG GELCAP PO SCH (08:44)
[2016-08-31] MEDS: POTASSIUM CHLORIDE 10 MEQ TABER PO SCH (08:45)
[2016-08-31] MEDS: MULTIVITAMIN 1 TAB PO SCH (08:45)
[2016-08-31] MEDS: MAGNESIUM OXIDE 400 MG TAB PO SCH ×2 (08:46→21:41)
[2016-08-31] MEDS: GABAPENTIN 300 MG CAP PO SCH (08:46)
[2016-08-31] MEDS: PANTOPRAZOLE 40 MG INJ VIAL IVP SCH (08:48)
--- NOTE | 2016-08-31 09:00 | NUR ---
MEDICATIONS ADMINISTERED WITH EDUCATION. PT VERBALIZES UNDERSTANDING. PT C/O PAIN, SEE PAIN ASSESSMENT. IVF INFUSING WELL. SAFETY MEASURES ENSURED. CALL LIGHT WITHIN REACH. WILL CONTINUE TO MONITOR.
--- NOTE | 2016-08-31 09:40 | NUR ---
ENDORSED PLAN OF CARE TO HIGHWAY DESIGN ENGINEER NURSE. CONDITION STABLE. Addendum: 08/31/16 at 1950 by Galdino Love RN WRONG TIME
[2016-08-31] MEDS: BETAMETHASONE VALERATE 0.1% TP SCH ×2 (10:03→23:47)
[2016-08-31 11:52] VITALS: BP 114/76
[2016-08-31] MEDS: COMPOSITE DRESSING TP SCH (13:00)
[2016-08-31] MEDS: THERAHONEY GEL 42.5 GM TP SCH (13:00)
[2016-08-31] MEDS: ALGINATE ROPE MC SCH (13:00)
[2016-08-31] MEDS: NON ADHERENT DRESSING TP SCH (13:00)
--- NOTE | 2016-08-31 14:00 | NUR ---
WOUND CARE COMPLETED ORDERED. PT TOLERATED WELL. PT CLEANED AND BED LINENS CHANGED. PT HAD MEDIUM SIZED SOFT SOLID BOWEL MOVEMENT THROUGH ANUS. PT REFUSED TO REPOSITION DESPITE EDUCATION, STATING "I WANT TO STAY LIKE THIS." IVF INFUSING WELL. SAFETY MEASURES ENSURED. WILL CONTINUE TO MONITOR.
--- NOTE | 2016-08-31 14:52 | NUR ---
SS NOTE: PER SHAD FROM [facility], NO ISO BEDS AVAILABLE PER SWATHI FROM [facility], PER ENRIQUE FROM [facility], PT IS TOO YOUNG FOR THEIR FACILITY Addendum: 08/31/16 at 1510 by Cassandra Young SS CORRECTION: PER SWATHI FROM [facility], NO ISO BEDS AVAILABLE
--- NOTE | 2016-08-31 15:12 | NUR ---
FAXED CONCURRENT REVIEW TO [facility] [phone] PHONE SHAHZAD [phone]
[2016-08-31 16:00] VITALS: BP 121/83
[2016-08-31] MEDS ORDERED: MAG SULF 2000 MG/WATER PREMIX 50 ML IV SCH (16:08)
--- NOTE | 2016-08-31 16:12 | NUR ---
SS NOTE: KIRAN SCALES FROM [facility], THEY ARE NOT CONTRACTED WITH [facility] PER GABRIELA FROM [facility], NO ISO BEDS AVAILABLE SENT ADDITIONAL SNF INQUIRIES TO: - MAXX SESAY - [facility] - [facility] - [facility] - SRAVANTHI KRUEGER
--- NOTE | 2016-08-31 18:18 | NUR ---
MEDICATIONS ADMINISTERED WITH EDUCATION, PT VERBALIZES UNDERSTANDING. PT TOLERATED MEDS WELL. PT TOLERATING REGULAR FOOD, PT ASKED IF HE HAS NAUSEA, PT STATED "A LITTLE BIT." PT REFUSING ANTI-NAUSEA MEDICATION, EMESIS BAG WITHIN REACH. SAFETY MEASURES ENSURED. CALL LIGHT WITHIN REACH. ALL NEEDS MET. WILL CONTINUE TO MONITOR.
--- NOTE | 2016-08-31 19:30 | NUR ---
RECEIVED REPORT FROM DAY RN AT BEDSIDE, PATIENT IS AAOX4 RESTING IN BED, ON ROOM AIR, NO SOB OR SIGN OF DISTRESS, PATIENT ON CONTACT ISO, PRECAUTIONS IN PLACE, PATIENT HAS ILEOSTOMY NOTED, SUPRAPUBIC CATH DRAINING YELLOW URINE. RIGHT SUBCLAVIAN X2 LUMEN PATENT AND INTACT, PATIENT IS PARAPLEGIC BILATERAL EXTREMITIES FLACCID. WOUNDS NOTED TO LEFT BUTTOCK PRESSURE ULCER, WOUND ABOVE ILEOSTOMY, RIGHT AND LEFT TOES ALTERED. DISCUSSED PLAN OF CARE WITH PATIENT, VERBALIZED UNDERSTANDING. CALL LIGHT WITHIN REACH. WILL CONTINUE TO MONITOR.
--- NOTE | 2016-08-31 19:40 | NUR ---
ENDORSED PLAN OF CARE TO STAFF SCIENTIST NURSE. CONDITION STABLE.
--- NOTE | 2016-08-31 20:30 | NUR ---
PATIENT CALLED PHONE ASKING FOR PAIN MEDS, STATED THEY WERE NOT DUE YET, PATIENT ASKED FOR MEDIA RELATIONS INTERN. WILL SEND MEDIA RELATIONS INTERN TO ROOM.
--- NOTE | 2016-08-31 21:10 | NUR ---
PATIENT CALLED CHARGE NURSE, STATED HE WANTED A NEW NURSE, ENDORSED REPORT TO SINTIA ULLOA. PATIENT IN STABLE CONDITION
--- NOTE | 2016-08-31 21:11 | NUR ---
RECEIVED PATIENT FROM ALEENA ULLOA FOR CONTINUITY OF CARE. PATIENT IS A&OX4, DISCUSSED PLAN OF CARE WITH PATIENT. PATIENT C/O PAIN, WILL MEDICATE PER MD ORDER. RT SUBCLAVIAN DOUBLE LUMEN INFUSING FLUIDS WELL. NO S/S OF DISTRESS NOTED. SAFETY MEASURES ENFORCED. CALL LIGHT WITHIN REACH. WILL CONTINUE TO MONITOR.
[2016-08-31] MEDS: NACL 0.9% 1,000 ML IV SCH (21:41)
--- NOTE | 2016-08-31 21:41 | NUR ---
DUE MEDICATIONS ADMINISTERED, TOLERATED WELL. PT C/O PAIN, MEDICATED PER MD ORDER. CALL LIGHT IN REACH.
[2016-09-01] VITALS: BP 111/65
[2016-09-01] MEDS: HYDROmorphone 1 MG/ML AMP IVP PRN ×2 (00:46→04:00)
--- NOTE | 2016-09-01 00:46 | NUR ---
VS TAKEN, STABLE. PT C/O PAIN, MEDICATED PER MD ORDER. WILL CONTINUE TO MONITOR.
[2016-09-01] MEDS: diphenhydrAMINE 50 MG/ML VIAL IVP PRN ×3 (00:48→13:32)
[2016-09-01] MEDS: Z-GUARD PASTE TP SCH ×2 (01:02→12:17)
--- NOTE | 2016-09-01 02:04 | NUR ---
PT IS RESTING IN BED, NO S/S OF DISTRESS NOTED. WILL CONTINUE TO MONITOR.
--- NOTE | 2016-09-01 04:00 | NUR ---
TURNED AND POSITIONED PATIENT. PT C/O PAIN, VS TAKEN, STABLE. MEDICATED PER MD ORDER. CALL LIGHT IN REACH.
[2016-09-01] MEDS: GENTAMICIN 120 MG in DEXTROSE 5% 100 ML IV SCH (05:29)
--- NOTE | 2016-09-01 06:00 | NUR ---
PT RESTING IN BED. NO DISTRESS OR DISCOMFORT NOTED. CALL LIGHT IN REACH.
--- NOTE | 2016-09-01 07:30 | NUR ---
REPORT RECEIVED FROM MARKETING TECHNOLOGIST, PT AWAKE ALERT OX4, RESP EVEN UNLABORED ON ROOM JOSY IN NAD, SPEAKS CLEARLY, DOUBLE LUMEN CATH TO RIGHT CHEST WALL, IVF INFUSING WELL, SITE CELAR, PT WITH ILEOSTOMY BAG TO RIGHT ABD, NO DRAINAGE NOTED IN BAG AT THIS TIME, SUPRAPUBIC CATH DRAINING CLEAR LIGHT YELLOW URINE, ABD ROUND SLIGHTLY DISTENDED, PT C/O PAIN, REQUESTS DILAUDID AND BENADRYL, DILAUDID CANCELLED BY THIS AM, PT NOTIFIED, WILL NOTIRY OF PT'S CONDITION, CALL OATES WITHIN REACH, SIDE RAILS UP X2, BED LOCKED IN LOW POSTION, ALL SAFETY MEASURES MET, WILL CONTIUE TO MONITOR
--- NOTE | 2016-09-01 07:35 | NUR ---
ENDORSED PATIENT TO DAY RN FOR CONTINUITY OF CARE, PATIENT IS IN STABLE CONDITION.
[2016-09-01 08:00] VITALS: BP 124/73
--- NOTE | 2016-09-01 08:20 | NUR ---
DR MARIE AND TEAM AT BEDSIDE FOR EVAL.
[2016-09-01] MEDS: PANTOPRAZOLE 40 MG INJ VIAL IVP SCH (08:29)
[2016-09-01] MEDS: BETAMETHASONE VALERATE 0.1% TP SCH (08:31)
[2016-09-01] MEDS ORDERED: METOCLOPRAMIDE 10 MG/2 ML INJ VIAL IVP PRN (08:35)
[2016-09-01] MEDS: LACTULOSE 20 GM/30 ML UDC PO SCH (09:00)
[2016-09-01] MEDS: DOCUSATE SODIUM 100 MG GELCAP PO SCH (09:00)
[2016-09-01] MEDS: POTASSIUM CHLORIDE 10 MEQ TABER PO SCH (09:00)
[2016-09-01] MEDS: MAGNESIUM OXIDE 400 MG TAB PO SCH (09:00)
[2016-09-01] MEDS: LACTOBACILLUS RHAMNOSUS GG 1 EACH CAP PO SCH (09:00)
[2016-09-01] MEDS: MULTIVITAMIN 1 TAB PO SCH (09:00)
[2016-09-01] MEDS: GABAPENTIN 300 MG CAP PO SCH (09:00)
--- NOTE | 2016-09-01 09:10 | NUR ---
PT C/O NAUSEA, REFUSES PO MEDS Addendum: 09/01/16 at 0943 by Crys Arteaga RN PT C/O NAUSEA, REFUSES PO MEDS, PT. DECLINED OFFER OF JULIAN MALIK FOR NAUSEA
--- NOTE | 2016-09-01 11:17 | NUR ---
FAXED CONCURRENT REVIEW TO [facility] [phone] PHONE JONATHON [phone] Addendum: 09/01/16 at 1126 by Lori Altamirano CM COVERING FOR JONATHON GUERRERO IS [facility] [phone] Addendum: 09/01/16 at 1127 by Lori Altamirano CM DISREGARD ABOVE NOTES, WRONG PATIENT
--- NOTE | 2016-09-01 11:20 | NUR ---
LARGE BM, PERICARE DONE, DRESSING CHANGED.
[2016-09-01] MEDS ORDERED: HYDROcodone/APAP 7.5/325 MG 1 TAB PO PRN (12:05)
[2016-09-01] MEDS: ALGINATE ROPE MC SCH (12:16)
[2016-09-01] MEDS: NON ADHERENT DRESSING TP SCH (12:16)
[2016-09-01] MEDS: COMPOSITE DRESSING TP SCH (12:16)
[2016-09-01] MEDS: THERAHONEY GEL 42.5 GM TP SCH (12:16)
[2016-09-01] MEDS ORDERED: HYDROmorphone 2 MG TAB PO SCH (12:30)
--- NOTE | 2016-09-01 12:30 | NUR ---
PT WANTS TO GO HOME NISHI TRIPLETT MADE AWARE
--- NOTE | 2016-09-01 12:33 | NUR ---
SS NOTE: PER BILL [facility], NO ISO BEDS AVAILABLE PER GUTIERREZ FROM [facility], NO MALE BEDS AVAILABLE PER OSMAN FROM [facility], NO ISO BEDS AVAILABLE PER FARA FROM [facility], NO ISO BEDS AVAILABLE PER SONNY FROM [facility], NO ISO BEDS AVAILABLE PER MARSHA FROM [facility], NO ISO BEDS AVAILABLE PER DELICIA FROM [facility], NO ISO BEDS AVAILABLE PER CELESTE FROM [place], NO ISO BEDS PER KENDY FROM [facility], NO ISO BEDS PER DESTIN FROM [facility] [place], NO ISO BEDS PER PEPPER FROM [facility], NO ISO BEDS MESSAGE LEFT FOR ADMISSIONS AT [facility]
--- NOTE | 2016-09-01 12:38 | NUR ---
FAXED CONCURRENT REVIEW TO [facility] [phone] PHONE SHAHZAD [phone] LEFT MESSAGE TO SHAHZAD TO CALL ME ABOUT PLACEMENT.
[2016-09-01] MEDS ORDERED: LINEZOLID 600MG PREMIX 300 ML IV SCH ×2 (13:00→21:00)
--- NOTE | 2016-09-01 13:00 | NUR ---
MD AT BEDSIDE, AFTER LENGTHY DISCUSSION, PT CHANGED HIS MIND NOW WANTS TO STAY WITHOUT AMA, REGLAN AND BENADRYL GIVEN AT THIS TIME FOR NAUSEA, WILL CONTINUE TO MONITOR
[2016-09-01] MEDS ORDERED: LORazepam 2 MG/ML VIAL IVP PRN (14:15)
[2016-09-01] MEDS ORDERED: ZOLPIDEM 5 MG TAB PO PRN (14:15)
--- NOTE | 2016-09-01 14:15 | NUR ---
1345 SPOKE WITH PT REGARDING REPORTED BY NURSE THAT HE IS SIGNING OUT AMA. PT STATED THAT HE WOULD PREFER THAT THE PHYSICIAN JUST DISCHARGE HIM ON PO ANTIBIOTICS. INFORMED HIM THAT HIS CULTURE RESULT INDICATES THAT HE NEEDS IV ANTIBIOTIC ALSO. PT REFUSES TO HAVE HOME HEALTH COME TO HIS HOME STATED "THERE IS JUST THINGS HAPPENING AT HOME THAT I CAN'T HAVE ANYONE GO THERE, ITS NOT A GOOD SITUATION" PT REFUSED TO ELABORATE FURTHER BUT ADAMANTLY REFUSED TO HAVE ANYONE VISIT HIS HOME. 1400 PER ASSIGNED NURSE PT JUST SIGNED AMA FORM AND SAID THAT PT CURRENTLY HAS A CENTRAL LINE THAT HE HAD ON ADMISSION TO [facility]. SPOKE WITH PT AND ASKED WHO HAD PLACED THE CENTRAL LINE AND HE STATED THAT HE HAD BEEN HAVING IV ANTIBIOTICS AT HOME BUT DUE TO CIRCUMSTANCES HE WOULD NOT DISCUSS THE HH WAS CANCELLED. ASKED WHO HAD INITIATED THE HOME IV'S AND HE SAID IT WAS A CLINIC IN [place] BUT AGAIN WOULD NOT ELABORATE. I ASKED WHO WOULD DO HIS WOUND CARE AND HE SAID HE WOULD GO TO AN OP CLINIC. ADVISED PT THAT IF HE IS ALREADY UNDER THE SERVICES OF THE CLINIC HE SHOULD RETURN THERE FOR FOLLOW UP. AT FIRST PT REQUESTED TO HAVE THE CENTRAL LINE REMOVED THEN HE REFUSED TO HAVE IT REMOVED.
--- NOTE | 2016-09-01 14:20 | NUR ---
PT GOING HOME AMA, SIGNED FORM, PT REFUSES HOME HEALTH ARRANGEMNT, REFUSES TEACHING TO DO IV ANTIBIOTIC AT HOME HIMSELF, HE WANTS TO GO AMA, PT REFUSES REMOVAL OF DOUBLE LUMEN CATH, STATES "I WILL GO BACK TO [facility] WHO PLACED THE CATH IN [place]", SUPRA PUBIC CATH IN PLACE, 1500 URNE EMPTIED, ILEOSTOMY IN PLACE, NO DRAINAGE NOTED IN BAG, PT HAD ANOTHER BM, PERICARE DONE AND CLEAN DIAPER PLACED, PT ASSISTED TO CHANGE CLOTHES, ASSISTED TO WHEELCHAIR, RX FOR REGLAN AND ZYVOX GIVEN TO PT, ESCORTED OUT BY MOLD FILLER.
[2016-09-01] MEDS ORDERED: GENTAMICIN 120 MG in DEXTROSE 5% 100 ML IV SCH (22:00)
== END 2016-09-01 14:20 | disposition left against medical advice (07) | DRG 252 ==
LOC: MED 21:09 → MTU 08-25 03:59
PROVIDERS: ADMIT Family Medicine; ATTEND Family Medicine
PROC: 0JBR0ZZ Excision of Left Foot Subcutaneous Tissue and Fascia, Open Approach (ICD-10-PCS; principal; 2016-08-25)
PROC: 0JBQ0ZZ Excision of Right Foot Subcutaneous Tissue and Fascia, Open Approach (ICD-10-PCS; 2016-08-25)
PROC: 0DJD8ZZ Inspection of Lower Intestinal Tract, Via Natural or Artificial Opening Endoscopic (ICD-10-PCS; 2016-08-28)
DX: K94.12 Enterostomy infection (principal); N17.0 Acute kidney failure with tubular necrosis; E43 Unspecified severe protein-calorie malnutrition; L89.323 Pressure ulcer of left buttock, stage 3; G82.20 Paraplegia, unspecified; E83.42 Hypomagnesemia; K31.84 Gastroparesis; L03.311 Cellulitis of abdominal wall; K56.7 Ileus, unspecified; N39.0 Urinary tract infection, site not specified; G62.9 Polyneuropathy, unspecified; G89.4 Chronic pain syndrome; Z68.1 Body mass index [BMI] 19.9 or less, adult; E87.6 Hypokalemia; K25.9 Gastric ulcer, unspecified as acute or chronic, without hemorrhage or perforation; L97.529 Non-pressure chronic ulcer of other part of left foot with unspecified severity; L97.519 Non-pressure chronic ulcer of other part of right foot with unspecified severity; M20.42 Other hammer toe(s) (acquired), left foot; M20.41 Other hammer toe(s) (acquired), right foot; I73.9 Peripheral vascular disease, unspecified; K59.00 Constipation, unspecified; A49.8 Other bacterial infections of unspecified site; Z16.21 Resistance to vancomycin; K52.9 Noninfective gastroenteritis and colitis, unspecified; D16.8 Benign neoplasm of pelvic bones, sacrum and coccyx; Q27.33 Arteriovenous malformation of digestive system vessel; Z88.5 Allergy status to narcotic agent; Z88.8 Allergy status to other drugs, medicaments and biological substances; Z79.899 Other long term (current) drug therapy; Z72.89 Other problems related to lifestyle; Z28.21 Immunization not carried out because of patient refusal

== ENCOUNTER 2017-11-20 20:54 | Emergency (ER) | payer OTHER, MEDICAID ==
[~2017-11-20] VITALS: Ht 172.7 cm; Wt 65.8 kg
[~2017-11-20 20:54] MED LIST changes: -AMPICILLIN IV; -DILAUDID1 MG/M1 PO; +DOCU1TAB PO; +GABA300C PO; +HYDR1SOL6 PO; -NEURONTIN300 MG PO; -NORCO 10/325 MG1 TAB PO; -SENNA CON/DOCUS1 TAB PO; -SENNA-S 50 MG-81 TAB PO; -SULBACTAM IV; +THE PO; -THERAGRAN1 TA2 PO; -TYLENOL325 M2 PO; -VANCOMYCIN HYDRO1 GM IV
[2017-11-20 20:56] VITALS: BP 108/58
[2017-11-20] MEDS ORDERED: BACITRACIN OINT 500 UNITS/GM PKT TP ONE (21:15)
[2017-11-20] MEDS ORDERED: HYDROmorphone PFS 2 MG/ML SYR IM ONE (21:15)
[2017-11-20 22:24] LABS: APPEARANCE,URINE SL CLOUDY (CLEAR); BILIRUBIN,URINE NEGATIVE (NEGATIVE); BLOOD, URINE TRACE-I (NEGATIVE); COLOR,URINE YELLOW (YELLOW); LEUKOCYTE ESTERASE ,URINE 1+ (NEGATIVE); NITRITE, URINE NEGATIVE (NEGATIVE); UGLUCOSE NEGATIVE (NEGATIVE)
[2017-11-20 22:32] LABS: PROTHROMBIN TIME 10.6 secs (10.8-13.4)
[2017-11-20 22:50] LABS: RED BLOOD CELL COUNT(AUTO) 3.72 MIL/uL (4.20-6.10); WHITE BLOOD COUNT (AUTO) 8.8 K/uL (4.8-10.8)
[2017-11-20 22:51] LABS: HEMATOCRIT 31.2 % (36-52); HEMOGLOBIN 9.6 g/dL (12.0-18.0); MEAN CORPUSCULAR HEMOGLOBIN 26 pg (27-31); MEAN CORPUSCULAR HGB CONC 31 g/dL (33-37); MEAN CORPUSCULAR VOLUME 83.9 fL (80-94); PLATELET COUNT (AUTO) 300 K/uL (140-450); RED CELL DISTRIBUTION WIDTH 19.2 % (11.6-13.7)
[2017-11-20 22:52] LABS: BASOPHILS # (AUTO) 0.3 K/uL (0.00-0.22); BASOPHILS % (AUTO) 3.2 % (0.0-2.0); EOSINOPHILS # (AUTO) 0.1 K/uL (0-0.4); EOSINOPHILS % (AUTO) 1.6 % (0.0-4.0); LYMPHOCYTES # (AUTO) 1.2 K/uL (2.0-11.5); LYMPHOCYTES % (AUTO) 13.9 % (20.5-51.1); MONOCYTES # (AUTO) 0.6 K/uL (0.8-1.0); MONOCYTES % (AUTO) 7.2 % (1.7-9.3); NEUTROPHILS # (AUTO) 6.6 K/uL (1.8-7.7); NEUTROPHILS % (AUTO) 74.1 % (42.2-75.2)
[2017-11-20 22:55] LABS: RBC,URINE 3-10 (FEW) /HPF (0-5); WBC,URINE 16-25 (MOD) /HPF (0-5); YEAST,URINE Many /HPF (None Seen)
[2017-11-20 23:02] LABS: ANION GAP 17.1 (8-16); CARBON DIOXIDE 21.4 mmol/L (21-32); CREATININE 0.6 mg/dL (0.7-1.3); POTASSIUM 3.5 mmol/L (3.5-5.1)
[2017-11-20 23:07] LABS: ALBUMIN 3.2 g/dL (3.4-5.0); TOTAL BILIRUBIN 0.2 mg/dL (0.0-1.0)
[2017-11-20] MEDS ORDERED: HYDROmorphone 1 MG/ML AMP IVP ONE (23:30)
[2017-11-20] MEDS ORDERED: PIPERACILLIN/TAZOBACTAM 3.375 GM in DEXTROSE 5% 50 ML IV ONE (23:30)
[2017-11-20] MEDS ORDERED: PIPERACILLIN/TAZOBACTAM 3.375 GM VIAL IV ONE (23:48)
[2017-11-21 01:20] VITALS: BP 104/61
== END 2017-11-21 01:20 | disposition home or self-care (01) ==
LOC: MED 20:54
DX: S92.421A Displaced fracture of distal phalanx of right great toe, initial encounter for closed fracture (principal); G82.20 Paraplegia, unspecified; Z88.6 Allergy status to analgesic agent; Z88.5 Allergy status to narcotic agent; W18.39XA Other fall on same level, initial encounter; Y93.89 Activity, other specified; Y92.89 Other specified places as the place of occurrence of the external cause; Y99.8 Other external cause status
CPT/HCPCS: 36415; 73660; 80053; 81001; 83605; 83690; 85025; 85610; 87040; 87086; 93971; 96365; 96372; 96375; 99285; J1170; J1642; J2543; Q0092

== ENCOUNTER 2018-10-17 23:25 | Emergency (ER) | payer OTHER, MEDICAID ==
[~2018-10-17] VITALS: Ht 170.2 cm; Wt 59.0 kg
--- NOTE | 2018-10-17 23:25 | NUR ---
PT BASIM ALS. TAKEN TO BED 10
--- NOTE | 2018-10-17 23:26 | NUR ---
Dr. Brody evaluating patient at bedside.
[2018-10-17 23:27] VITALS: BP 79/46
--- NOTE | 2018-10-17 23:49 | NUR ---
PT TO ED VIA EMS AFTER BEING FOUND IN CLUB ALTERED. PER EMS PT REPORTED TO HAVE 5 DRINKS. PT ALERT TO NAME AND PLACE, ABLE TO OPEN EYES AND RESPOND TO QUESTIONS. UPON ARRIVAL PT NOTED TO HAVE INDWELLING CARRILLO CATH IN PLACE. ALSO NOTED RT SUBCLAVIAN PORTACATH. PT PLACED INTO BED, PENDING MD WESTON.
--- NOTE | 2018-10-18 00:42 | NUR ---
DR. LOPEZ AWARE OF BP OF 80/45.
--- NOTE | 2018-10-18 00:42 | NUR ---
WARM BLANKETS PROVIDED. PLACED IN POSITION OF COMFORT.
[2018-10-18] MEDS ORDERED: NACL 0.9% 1,000 ML IV ONE (00:45)
--- NOTE | 2018-10-18 02:11 | NUR ---
PT BECOMING MORE ALERT. ALERT TO NAME, BIRTHDAY, PLACE, AND EVENT. ASKED PT IF HE WAS ABLE TO PROVIDE TRANSPORTATION TO HOME UPON DISCHARGE, PT STATED HE WOULD PAY FOR A CAB.
--- NOTE | 2018-10-18 02:22 | NUR ---
PT EXPRESSING DESIRE TO LEAVE. ER AWARE.
--- NOTE | 2018-10-18 02:28 | NUR ---
CURRENT BP 92/53. ER AWARE.
--- NOTE | 2018-10-18 02:45 | NUR ---
PT AWARE THAT HE WILL BE PAYING CAB FEE HOME. CAB CALLED.
--- NOTE | 2018-10-18 02:50 | NUR ---
IV removed, catheter intact and site benign. Applied folded 4x4 gauze and tape to stop bleeding.
--- NOTE | 2018-10-18 03:00 | NUR ---
Patient discharged with v/s stable. Written and verbal after care instructions given and explained. Patient verbalized understanding. Wheel Chair Assisted to cab. All questions addressed prior to discharge. Advised to follow up with PMD.
[2018-10-18 03:01] VITALS: BP 92/53
== END 2018-10-18 03:00 | disposition home or self-care (01) ==
LOC: MED 23:25
DX: F10.129 Alcohol abuse with intoxication, unspecified (principal); Z88.5 Allergy status to narcotic agent; Z88.8 Allergy status to other drugs, medicaments and biological substances; Z79.899 Other long term (current) drug therapy; Z98.890 Other specified postprocedural states
CPT/HCPCS: 99283; J7030

== ENCOUNTER 2020-11-26 03:24 | Emergency (ER) | payer OTHER, MEDICAID ==
[~2020-11-26] VITALS: Ht 177.8 cm; Wt 63.5 kg
[~2020-11-26 03:24] MED LIST changes: +CEPH250C16 PO; +FLUC150T PO; +METR-520 PO
[2020-11-26 03:30] VITALS: BP 114/68
--- NOTE | 2020-11-26 03:37 | NUR ---
PT TAKEN TO BED 4
--- NOTE | 2020-11-26 04:01 | NUR ---
35 Y/O MALE PT PRESENTS TO ED C/O LOWER BACK PAIN, LOWER ABDOMINAL PAIN, BILATERAL LEG PAIN SINCE YESTERDAY. ALSO C/O SACRAL WOUND X 1 MONTH, STATING "IT HAS A FOUL ODOR." +N/V. NOTED WITH CARRILLO BAG, HAS HAD FOR 1 YEAR. MED HX: PARAPALEGIC ALLERGIES: MORPHINE, TORADOL
--- NOTE | 2020-11-26 04:04 | NUR ---
Dr. Bowman examining patient.
--- NOTE | 2020-11-26 04:22 | NUR ---
REBANDAGE SACRAL WOUND. DRAINED OSTOMY BAG
[2020-11-26] MEDS ORDERED: fentaNYL citrate 0.05 MG/ML VIAL IM ONE (04:25)
[2020-11-26] MEDS ORDERED: CEPH-588 PO (04:43)
--- NOTE | 2020-11-26 06:00 | NUR ---
Patient discharged with v/s stable. Written and verbal after care instructions given and explained. Patient alert, oriented and verbalized understanding of instructions. WHEELCHAIR ASSITED. All questions addressed prior to discharge. ID band removed. Patient advised to follow up with PMD. Rx of KEFLEX given. Patient educated on indication of medication including possible reaction and side effects. Opportunity to ask questions provided and answered.
[2020-11-26 06:03] VITALS: BP 114/68
== END 2020-11-26 06:00 | disposition home or self-care (01) ==
LOC: MED 03:24
DX: L89.90 Pressure ulcer of unspecified site, unspecified stage (principal); N39.0 Urinary tract infection, site not specified; R11.2 Nausea with vomiting, unspecified; Z79.899 Other long term (current) drug therapy; Z98.890 Other specified postprocedural states; Z88.5 Allergy status to narcotic agent; Z88.8 Allergy status to other drugs, medicaments and biological substances
CPT/HCPCS: 87086; 96372; 99283; J3010

== ENCOUNTER 2021-10-07 05:23 | Emergency (ER) | payer OTHER, MEDICAID ==
[~2021-10-07 05:23] MED LIST changes: +CEPH-588 PO
--- NOTE | 2021-10-07 05:36 | NUR ---
PATIENT LEFT WITHOUT BEING SEEN BY DR. LUCIANO. NO FURTHER CARE PROVIDED FOR PATIENT.
== END 2021-10-07 05:36 | disposition left against medical advice (07) ==
LOC: MED 05:23
DX: R10.9 Unspecified abdominal pain (principal); Z53.21 Procedure and treatment not carried out due to patient leaving prior to being seen by health care provider

== ENCOUNTER 2022-02-12 04:16 | Emergency (ER) | payer OTHER, MEDICAID ==
[~2022-02-12] VITALS: Ht 177.8 cm; Wt 65.3 kg
[2022-02-12 04:21] VITALS: BP 93/55
--- NOTE | 2022-02-12 04:48 | NUR ---
Dr. Pleitez examining patient.
[2022-02-12] MEDS ORDERED: HYDROcodone/APAP 5/325 MG 1 TAB TAB PO ONE (05:05)
--- NOTE | 2022-02-12 05:11 | NUR ---
PATIENT ELOPED FROM FACILITY. DISCHARGE INSTRUCTIONS NOT GIVEN TO PATIENT. DR. Pleitez NOTIFIED.
== END 2022-02-12 05:11 | disposition left against medical advice (07) ==
LOC: MED 04:16
DX: R10.30 Lower abdominal pain, unspecified (principal); Z79.1 Long term (current) use of non-steroidal anti-inflammatories (NSAID)
CPT/HCPCS: 99281